=== PATIENT | male | born 1945 | race Caucasian/White ===

== ENCOUNTER 2022-12-20 07:28 | Day surgery (SDC) | payer MEDICARE ==
[2022-12-20] MEDS ORDERED: fentaNYL 100 MCG/2 ML SDV ONE (07:42)
[2022-12-20] MEDS ORDERED: Propofol 200 MG/20 ML SDV ONE (07:42)
[2022-12-20] MEDS ORDERED: Midazolam 1 MG/ML 2 ML SDV ONE (07:42)
[2022-12-20] MEDS ORDERED: Sodium Chloride 0.9% 1,000 ML IV SCH (08:00)
== END 2022-12-20 10:24 | disposition home or self-care (01) ==
LOC: JP.SDS 07:28
PROVIDERS: ATTEND Internal Medicine
DX: D12.0 Benign neoplasm of cecum (principal); D12.2 Benign neoplasm of ascending colon; I12.9 Hypertensive chronic kidney disease with stage 1 through stage 4 chronic kidney disease, or unspecified chronic kidney disease; N18.9 Chronic kidney disease, unspecified
CPT/HCPCS: 45380; 88305; J2250; J2704; J3010; J7030